=== PATIENT | female | born 1960 | race Caucasian/White ===

== ENCOUNTER 2024-02-12 08:57 | Outpatient (CLI) | payer MEDICARE, SELFPAY | END 2024-02-12 08:58 | disposition home or self-care (01) | LOC: ANHAUDIO 08:57 | PROVIDERS: PCP Internal Medicine; Visit Provider Otolaryngology | DX: H90.41 Sensorineural hearing loss, unilateral, right ear, with unrestricted hearing on the contralateral side (principal); H90.72 Mixed conductive and sensorineural hearing loss, unilateral, left ear, with unrestricted hearing on the contralateral side | CPT/HCPCS: 92557; 92567 ==